=== PATIENT | female | born 1935 | race Caucasian/White ===

== ENCOUNTER 2018-12-03 05:58 | Inpatient (IN) ==
[2018-11-29 12:23] LABS: Basophils # 0.1 10*3/uL (0.0-0.2); Basophils % 0.6 % (0.0-0.8); Eosinophils # 0.1 10*3/uL (0.0-0.87); Eosinophils % 1.1 % (0.00-10.9); Hematocrit 34.9 VOL% (35.7-47.0); Hemoglobin 11.1 GM/DL (12.0-16.0); Immature Granulocytes % 0.4 %; Immature Granulocytes Absolute 0.04 #; Lymphocytes % 29.1 % (21.3-54.2); Mean Corpuscular HGB Conc 31.8 GM/DL (32-36); Mean Corpuscular Volume 101.7 FL (87-102); Mean Platelet Volume 9.4 FL (9.6-12.0); Monocytes % 10.3 % (1.7-12.7); Neutrophils % 58.5 % (38.7-73.9); Platelet Count 304 T/CUMM (130-400); Red Blood Count 3.43 MC/CUMM (3.8-5.5); Red Cell Distribution Width 14.3 % (9.3-17.3); White Blood Count 10.2 T/CUMM (4-12)
[2018-11-29 12:53] LABS: Calcium 9.4 MG/DL (8.5-10.1); Osmolality,Calculated 283.3 MOS/KG (273-304)
[2018-12-03] MEDS ORDERED: ALVIMOPAN 12 MG CAPSULE PO ONE (06:00)
[2018-12-03] MEDS ORDERED: ERTAPENEM 1,000 MG in SODIUM CHLORIDE 0.9% 100 ML IV ONE (06:00)
[2018-12-03] MEDS ORDERED: INDOCYANINE GREEN 25 MG VIAL IV ONE (06:10)
[2018-12-03] MEDS ORDERED: BUPIVACAINE 0.25% /EPI 10 ML VIAL ONE (06:10)
[2018-12-03] MEDS ORDERED: LIDOCAINE 1% 20 ML VIAL ONE (06:11)
[2018-12-03] MEDS ORDERED: TISSUE ADHESIVE 1 EACH APPLICATOR TOP ONE (06:11)
[2018-12-03] MEDS ORDERED: DIAZEPAM 5 MG TABLET PO ONE (06:53)
[2018-12-03] MEDS ORDERED: FAMOTIDINE 20 MG TABLET PO ONE (06:54)
[2018-12-03] MEDS ORDERED: LACTATED RINGERS 1,000 ML IV SCH (07:00)
[2018-12-03] MEDS ORDERED: DIAZEPAM 5 MG TABLET ONE (07:06)
[2018-12-03] MEDS ORDERED: FAMOTIDINE 20 MG TABLET ONE (07:07)
[2018-12-03] MEDS ORDERED: ERTAPENEM 1,000 MG VIAL ONE (07:07)
[2018-12-03] MEDS ORDERED: DEXAMETHASONE 4 MG/1 ML VIAL ONE ×2 (07:11→10:33)
[2018-12-03] MEDS ORDERED: EPINEPHrine 1 MG/ML VIAL ONE (07:11)
[2018-12-03] MEDS ORDERED: BUPIVACAINE 0.5% 50 ML VIAL ONE (07:16)
[2018-12-03] MEDS ORDERED: LIDOCAINE 1% 5 ML VIAL ONE (07:16)
[2018-12-03] MEDS ORDERED: SEVOFLURANE 1 UNIT/15 MINUTE INH ONE (10:32)
[2018-12-03] MEDS ORDERED: PROPOFOL 200 MG/20 ML VIAL IV ONE (10:32)
[2018-12-03] MEDS ORDERED: NEOSTIGMINE 10 MG/10 ML VIAL ONE (10:33)
[2018-12-03] MEDS ORDERED: PHENYLEPHRINE 1 MG/10 ML SYRINGE IV ONE (10:33)
[2018-12-03] MEDS ORDERED: fentaNYL 100 MCG/2 ML VIAL ONE (10:33)
[2018-12-03] MEDS ORDERED: LACTATED RINGERS 1,000 ML IV ONE (10:33)
[2018-12-03] MEDS ORDERED: GLYCOPYRROLATE 0.4 MG/2 ML VIAL ONE (10:33)
[2018-12-03] MEDS ORDERED: KETOROLAC 30 MG/1 ML VIAL ONE (10:33)
[2018-12-03] MEDS ORDERED: ONDANSETRON 4 MG/2 ML VIAL ONE (10:33)
[2018-12-03] MEDS ORDERED: ROCURONIUM 100 MG/10 ML VIAL IV ONE (10:33)
[2018-12-03] MEDS ORDERED: ACETAMINOPHEN 325 MG TABLET PO PRN (11:30)
[2018-12-03] MEDS ORDERED: ONDANSETRON 4 MG/2 ML VIAL IV PRN ×2 (11:30→14:19)
[2018-12-03] MEDS ORDERED: ALBUTEROL/IPRATROPIUM 3 ML NEB RESP TX PRN (11:30)
[2018-12-03] MEDS: HYDROmorphone 2 MG/1 ML VIAL IV PRN ×2 (11:49→14:00)
[2018-12-03] MEDS ORDERED: HYDROmorphone 2 MG/1 ML VIAL IV PRN (14:19)
[2018-12-03] MEDS ORDERED: PROMETHAZINE 25 MG/1 ML VIAL IM PRN (14:19)
[2018-12-03 14:54] LABS: Basophils % 0.2 % (0.0-0.8); Hematocrit 32.2 VOL% (35.7-47.0); Hemoglobin 10.4 GM/DL (12.0-16.0); Immature Granulocytes % 0.7 %; Immature Granulocytes Absolute 0.11 #; Lymphocytes # 1.2 10*3/uL (1.4-4.0); Lymphocytes % 7.1 % (21.3-54.2); Mean Corpuscular HGB Conc 32.3 GM/DL (32-36); Mean Corpuscular Volume 102.5 FL (87-102); Mean Platelet Volume 9.6 FL (9.6-12.0); Monocytes % 6.5 % (1.7-12.7); Neutrophils % 85.5 % (38.7-73.9); Platelet Count 273 T/CUMM (130-400); Red Blood Count 3.14 MC/CUMM (3.8-5.5); Red Cell Distribution Width 14.2 % (9.3-17.3); White Blood Count 16.5 T/CUMM (4-12)
[2018-12-03 14:58] LABS: Calcium 9.5 MG/DL (8.5-10.1); Osmolality,Calculated 284.4 MOS/KG (273-304)
[2018-12-03] MEDS: KETOROLAC 15 MG/1 ML VIAL IV SCH ×2 (15:11→20:07)
[2018-12-03] MEDS: LACTATED RINGERS 1,000 ML IV SCH (15:12)
[2018-12-03] MEDS: ALLOPURINOL 300 MG TABLET PO SCH (18:26)
[2018-12-03] MEDS: CYANOCOBALAMIN 500 MCG TABLET PO SCH (18:26)
[2018-12-03] MEDS: ALVIMOPAN 12 MG CAPSULE PO SCH (20:07)
[2018-12-04] MEDS: KETOROLAC 15 MG/1 ML VIAL IV SCH (01:43)
[2018-12-04] MEDS: LACTATED RINGERS 1,000 ML IV SCH ×3 (01:46→15:34)
[2018-12-04 06:06] LABS: Basophils % 0.2 % (0.0-0.8); Hematocrit 26.1 VOL% (35.7-47.0); Hemoglobin 8.6 GM/DL (12.0-16.0); Immature Granulocytes % 0.7 %; Immature Granulocytes Absolute 0.12 #; Lymphocytes # 1.7 10*3/uL (1.4-4.0); Lymphocytes % 10.4 % (21.3-54.2); Mean Corpuscular Volume 101.6 FL (87-102); Mean Platelet Volume 9.8 FL (9.6-12.0); Monocytes % 8.4 % (1.7-12.7); Neutrophils % 80.3 % (38.7-73.9); Platelet Count 213 T/CUMM (130-400); Red Blood Count 2.57 MC/CUMM (3.8-5.5); Red Cell Distribution Width 14.4 % (9.3-17.3); White Blood Count 16.5 T/CUMM (4-12)
[2018-12-04 06:22] LABS: Calcium 8.6 MG/DL (8.5-10.1); Osmolality,Calculated 281.7 MOS/KG (273-304)
[2018-12-04] MEDS ORDERED: ENOXAPARIN 40 MG/0.4 ML SYRINGE SUBCUT SCH (08:13)
[2018-12-04] MEDS ORDERED: Biotin 1,000 MCG PO SCH (09:00)
[2018-12-04] MEDS ORDERED: PANTOPRAZOLE 40 MG TABLET PO SCH (09:00)
[2018-12-04] MEDS: COENZYME Q10 100 MG CAPSULE PO SCH (09:11)
[2018-12-04] MEDS: CHOLECALCIFEROL 1,000 UNIT TABLET PO SCH (09:11)
[2018-12-04] MEDS: ALVIMOPAN 12 MG CAPSULE PO SCH ×2 (09:11→20:19)
[2018-12-04] MEDS: ROSUVASTATIN 10 MG TABLET PO SCH (09:11)
[2018-12-04] MEDS: ASCORBIC ACID 500 MG TABLET PO SCH (09:11)
[2018-12-04] MEDS: FOLIC ACID 1 MG TABLET PO SCH (09:11)
[2018-12-04] MEDS: PYRIDOXINE 100 MG TABLET PO SCH (09:11)
[2018-12-04] MEDS: ASPIRIN CHEW 81 MG TABLET PO SCH (09:14)
[2018-12-04 13:59] LABS: Basophils % 0.1 % (0.0-0.8); Eosinophils % 0.1 % (0.00-10.9); Hematocrit 26.4 VOL% (35.7-47.0); Hemoglobin 8.4 GM/DL (12.0-16.0); Immature Granulocytes % 0.6 %; Immature Granulocytes Absolute 0.09 #; Lymphocytes # 2.3 10*3/uL (1.4-4.0); Lymphocytes % 15.3 % (21.3-54.2); Mean Corpuscular HGB Conc 31.8 GM/DL (32-36); Mean Corpuscular Volume 104.3 FL (87-102); Mean Platelet Volume 9.5 FL (9.6-12.0); Monocytes % 7.3 % (1.7-12.7); Neutrophils % 76.6 % (38.7-73.9); Platelet Count 204 T/CUMM (130-400); Red Blood Count 2.53 MC/CUMM (3.8-5.5); Red Cell Distribution Width 14.5 % (9.3-17.3); White Blood Count 15.2 T/CUMM (4-12)
[2018-12-04 14:21] LABS: Calcium 8.8 MG/DL (8.5-10.1); Osmolality,Calculated 284.5 MOS/KG (273-304)
[2018-12-04] MEDS ORDERED: MAGNESIUM SULF RIDER 4 GM in PREMIX 1 EACH IV ONE (15:32)
[2018-12-04] MEDS: CYANOCOBALAMIN 500 MCG TABLET PO SCH (18:34)
[2018-12-04] MEDS: ALLOPURINOL 300 MG TABLET PO SCH (18:34)
[2018-12-05 06:08] LABS: Basophils % 0.2 % (0.0-0.8); Eosinophils # 0.1 10*3/uL (0.0-0.87); Eosinophils % 0.6 % (0.00-10.9); Hematocrit 25.6 VOL% (35.7-47.0); Hemoglobin 8.3 GM/DL (12.0-16.0); Immature Granulocytes % 0.6 %; Immature Granulocytes Absolute 0.08 #; Lymphocytes # 2.5 10*3/uL (1.4-4.0); Lymphocytes % 19.5 % (21.3-54.2); Mean Corpuscular HGB Conc 32.4 GM/DL (32-36); Mean Corpuscular Volume 104.5 FL (87-102); Mean Platelet Volume 10.3 FL (9.6-12.0); Monocytes % 7.6 % (1.7-12.7); Neutrophils % 71.5 % (38.7-73.9); Platelet Count 223 T/CUMM (130-400); Red Blood Count 2.45 MC/CUMM (3.8-5.5); Red Cell Distribution Width 14.6 % (9.3-17.3); White Blood Count 12.9 T/CUMM (4-12)
[2018-12-05 06:40] LABS: Calcium 8.9 MG/DL (8.5-10.1); Osmolality,Calculated 287.3 MOS/KG (273-304)
[2018-12-05] MEDS: ASPIRIN CHEW 81 MG TABLET PO SCH (09:57)
[2018-12-05] MEDS: PYRIDOXINE 100 MG TABLET PO SCH (09:58)
[2018-12-05] MEDS: FOLIC ACID 1 MG TABLET PO SCH (09:58)
[2018-12-05] MEDS: CHOLECALCIFEROL 1,000 UNIT TABLET PO SCH (09:58)
[2018-12-05] MEDS: ROSUVASTATIN 10 MG TABLET PO SCH (09:58)
[2018-12-05] MEDS: ASCORBIC ACID 500 MG TABLET PO SCH (09:58)
[2018-12-05] MEDS: ALVIMOPAN 12 MG CAPSULE PO SCH (09:59)
[2018-12-05] MEDS: COENZYME Q10 100 MG CAPSULE PO SCH (10:05)
[2018-12-05 11:20] VITALS: BP 115/60
== END 2018-12-05 12:08 | disposition home or self-care (01) | DRG 331 ==
LOC: N.OR 05:58 → N.SDSINP 05:58 → N.3E 11:24 → EDSTATUS 16:45 → N.OR 12-05 12:08 → N.3E 12-05 14:53
PROVIDERS: ADMIT Surgery; ATTEND Surgery